=== PATIENT | female | born 1965 | race Caucasian/White ===

== ENCOUNTER → 2019-08-25 | Outpatient (CLI) | payer BC, OTHER ==
--- NOTE | 2019-08-25 16:51 | REPVR ---
PROCEDURE INFORMATION: Exam: CT Maxillofacial Without Contrast, Sinus Exam date and time: 08/25/2019 4:29 PM Age: 53 years old Clinical indication: Sinusitis; Chronic; Additional info: Epistaxis TECHNIQUE: Imaging protocol: CT Maxillofacial without contrast. Focus on the sinuses. Radiation optimization: All CT scans at this facility use at least one of these dose optimization techniques: automated exposure control; mA and/or kV adjustment per patient size (includes targeted exams where dose is matched to clinical indication); or iterative reconstruction. COMPARISON: No relevant prior studies available. FINDINGS: Frontal sinuses: Normal. No air-fluid levels. Normal bilateral frontal recesses. Ethmoid air cells: Normal. No air-fluid levels. Sphenoid sinuses: Normal. No air-fluid levels. Normal spheno-ethmoidal recesses and sphenoid ostia. Maxillary sinuses: Mild inferior medial right maxillary sinus mucosal thickening. Patent bilateral maxillary sinus ostiomeatal complexes. Orbits: Orbits are normal. Globes are unremarkable. Nasal cavity/Septum: Unremarkable. Soft tissues: Unremarkable. Bones/joints: Unremarkable. IMPRESSION: 1. Mild right maxillary sinus mucosal disease as above. 2. No specific cause of epistaxis identified. Electronically signed by: Elias Johnson On 08/25/2019 16:50:48 PM
== END ==
LOC: M RAD 16:20
PROVIDERS: ATTEND Otolaryngology
DX: R04.0 Epistaxis (principal); J32.0 Chronic maxillary sinusitis